=== PATIENT | male | born 1950 ===

== ENCOUNTER 2020-07-25 06:00 | Day surgery (SDC) | payer OTHER ==
[~2020-07-25 06:00] MED LIST: ARICEPT5 MG PO; FENOFIBRATE150 MG PO; LASIX40 MG PO; LIPITOR20 MG PO; LOSARTAN-HCTZ1 EACH PO; PROAIR HFA8.5 GM IH; TOPROL XL25 M1 PO; ZYLOPRIM100 M1 PO
== END 2020-07-25 12:20 | disposition home or self-care (01) ==
LOC: CIR.AMB 06:00
PROVIDERS: ATTEND Orthopaedic Surgery Hand Surgery
DX: G56.02 Carpal tunnel syndrome, left upper limb (principal); Z20.822 Contact with and (suspected) exposure to COVID-19